=== PATIENT | male | born 1955 ===

== ENCOUNTER 2022-03-10 04:50 | Emergency (ER) | payer BC ==
--- OUTSIDE RECORDS SUMMARY | 2022-03-10 04:53 | XMS REPORT | Continuity of Care Document ---
:1955 Author Organization [facility] t Address [facility] [place] [address] Care Team Providers Name Role Phone Leana Ester Primary Care Physician Maribel RN, T Attending Clinician Unavailable Only, Db Test Attending Clinician Unavailable Lars CHURCHILL Attending Clinician LARS Attending Clinician Unavailable Doctor Unassigned, Name Attending Clinician Unavailable Pcp, Does Not Have A Attending Clinician Payers Payer Name Policy Type Policy Number Effective Date Expiration Date S ource Problems Condition Condition Condition Status Onset Resolution Last Treating Co mments Source Name Details Category Date Date Treatment Clinician Date Total knee Total knee Disease Active U nivers replacemen replacemen 1-04 it y of t status t status 00:00: [place] 00 [facility] Branch Right foot Right foot Disease Active 2014-11 U nivers pain pain 0-02 ity of 00:00: [place] 00 [facility] Left arm Left arm Disease Active 2014-11 Unive rs pain pain 0-02 ity of 00:00: [place] 00 [facility] Branch Right knee Right knee Disease Active 2014-11 U nivers pain pain 0-02 ity of 00:00: [place] 00 [facility] Allergies, Adverse Reactions, Alerts Allergy Allergy Status Severity Reaction(s) Onset Inactive Treating Comm ents Source Name Type Date Date Clinician Codeine Propensi Active Hives Univers ty to 5-10 ity of adverse 00:00: [place] reaction 00 Medical s Branch CODEINE DRUG Active Hives Univers INGREDI 5-10 ity of 00:00: [place] 00 [facility] Social History Social Habit Start Date Stop Date Quantity Comments Source Exposure to Not sure [facility] SARS-CoV-2 [place] [facility] (event) Branch Tobacco use and 2016-03-20 2016-03-20 Never used Universit y of exposure 00:00:00 00:00:00 [facility] Alcohol intake 2016-03-20 2016-03-20 Current University of 00:00:00 00:00:00 non-drinker of [facility] [place] [facility] alcohol Branch (finding) Sex Ass[birth year] At [birth year] Universit y of 00:00:00 00:00:00 [facility] Smoking Status Start Date Stop Date Source Never smoker [facility] Medications Ordered Filled Start Stop Current Ordering Indication Dosage Frequency Signature Comments Components Source Medication Medication Date Date Medication? Clinician (SIG) Name Name DICLOFENAC 2017 Yes TAKE 1 Unive rs 75 mg EC 0-10 TABLET BY ity of tablet 00:00: MOUTH 00 TWICE Medical DAILY WITH Branch MEALS DICLOFENAC 2016-11 Yes TAKE 1 Unive rs 75 mg EC 0-10 TABLET BY ity of tablet 00:00: MOUTH TWICE Medical DAILY WITH Branch MEALS DICLOFENAC 2016-11 Yes TAKE 1 Unive rs 75 mg EC 0-10 TABLET BY ity of tablet 00:00: MOUTH 00 TWICE Medical DAILY WITH Branch MEALS DICLOFENAC 2016-11 Yes TAKE 1 Unive rs 75 mg EC 0-10 TABLET BY ity of tablet 00:00: MOUTH 00 TWICE Medical DAILY WITH Branch MEALS DICLOFENAC 2016-11 Yes TAKE 1 Unive rs 75 mg EC 0-10 TABLET BY ity of tablet 00:00: MOUTH 00 TWICE Medical DAILY WITH Branch MEALS DICLOFENAC 2016-11 Yes TAKE 1 Unive rs 75 mg EC 0-10 TABLET BY ity of tablet 00:00: MOUTH 00 TWICE Medical DAILY WITH Branch MEALS pentazocine Yes TAKE 1 Univ ers -naloxone 4-06 TABLET BY ity o f (TALWIN NX) 00:00: MOUTH [place] 50-0.5 mg 00 EVERY 6 Medical tablet HOURS Branch NEEDED FOR PAIN. pentazocine Yes TAKE 1 Univ ers -naloxone 4-06 TABLET BY ity o f (TALWIN NX) 00:00: MOUTH [place] 50-0.5 mg 00 EVERY 6 Medical tablet HOURS Branch NEEDED FOR PAIN. pentazocine Yes TAKE 1 Univ ers -naloxone 4-06 TABLET BY ity o f (TALWIN NX) 00:00: MOUTH [place] 50-0.5 mg 00 EVERY 6 Medical tablet HOURS Branch NEEDED FOR PAIN. pentazocine 2016-0 Yes TAKE 1 Univ ers -naloxone 4-06 TABLET BY ity o f (TALWIN NX) 00:00: MOUTH [place] 50-0.5 mg 00 EVERY 6 Medical tablet HOURS Branch NEEDED FOR PAIN. pentazocine 2016-0 Yes TAKE 1 Univ ers -naloxone 4-06 TABLET BY ity o f (TALWIN NX) 00:00: MOUTH [place] 50-0.5 mg 00 EVERY 6 Medical tablet HOURS Branch NEEDED FOR PAIN. pentazocine 2016-0 Yes TAKE 1 Univ ers -naloxone 4-06 TABLET BY ity o f (TALWIN NX) 00:00: MOUTH [place] 50-0.5 mg 00 EVERY 6 Medical tablet HOURS Branch NEEDED FOR PAIN. traMADOL 2016-0 Yes 50mg Take 1 Tab Uni vers (ULTRAM) 50 3-11 by mouth ity of mg tablet 00:00: every 6 [place] 00 (six) Medical hours as Branch needed for Pain (scale 7-10) for up to 40 doses. traMADOL 2016-0 Yes 50mg Take 1 Tab Uni vers (ULTRAM) 50 3-11 by mouth ity of mg tablet 00:00: every 6 [place] 00 (six) Medical hours as Branch needed for Pain (scale 7-10) for up to 40 doses. traMADOL 2016-0 Yes 50mg Take 1 Tab Uni vers (ULTRAM) 50 3-11 by mouth ity of mg tablet 00:00: every 6 [place] 00 (six) Medical hours as Branch needed for Pain (scale 7-10) for up to 40 doses. traMADOL 2016-0 Yes 50mg Take 1 Tab Uni vers (ULTRAM) 50 3-11 by mouth ity of mg tablet 00:00: every 6 [place] 00 (six) Medical hours as Branch needed for Pain (scale 7-10) for up to 40 doses. traMADOL 2016-0 Yes 50mg Take 1 Tab Uni vers (ULTRAM) 50 3-11 by mouth ity of mg tablet 00:00: every 6 [place] 00 (six) Medical hours as Branch needed for Pain (scale 7-10) for up to 40 doses. traMADOL 2016-0 Yes 50mg Take 1 Tab Uni vers (ULTRAM) 50 3-11 by mouth ity of mg tablet 00:00: every 6 [place] 00 (six) Medical hours as Branch needed for Pain (scale 7-10) for up to 40 doses. ASPIRIN 2016-0 Yes 81mg Take 81 mg Univ ers ORAL 2-12 by mouth ity of 17:06: every [place] 38 other day. Medical Branch ASPIRIN 0 Yes 81mg Take 81 mg Univ ers ORAL 2-12 by mouth ity of 17:06: every [place] 38 other day. Medical Branch ASPIRIN 2015-0 Yes 81mg Take 81 mg Univ ers ORAL 2-12 by mouth ity of 17:06: every [place] 38 other day. Medical Branch ASPIRIN 0 Yes 81mg Take 81 mg Univ ers ORAL 2-12 by mouth ity of 17:06: every [place] 38 other day. Medical Branch ASPIRIN 0 Yes 81mg Take 81 mg Univ ers ORAL 2-12 by mouth ity of 17:06: every [place] 38 other day. Medical Branch ASPIRIN 0 Yes 81mg Take 81 mg Univ ers ORAL 2-12 by mouth ity of 17:06: every [place] 38 other day. Medical Branch ASCENSIA 2016-0 Yes Univers MICROFILL 1-04 ity of strip 00:00: [place] 00 Medical Branch ASCENSIA 2015-0 Yes Univers MICROFILL 1-04 ity of strip 00:00: [place] 00 Medical Branch ASCENSIA 2016-0 Yes Univers MICROFILL 1-04 ity of strip 00:00: [place] 00 Medical Branch ASCENSIA 2016-0 Yes Univers MICROFILL 1-04 ity of strip 00:00: [place] 00 Medical Branch ASCENSIA 2016-0 Yes Univers MICROFILL 1-04 ity of strip 00:00: [place] [facility] ASCENSIA 2016-0 Yes Univers MICROFILL 1-04 ity of strip 00:00: [place] 00 Medical Branch losartan 2014-0 Yes 50mg Take 50 mg Uni vers (COZAAR) 50 8-12 by mouth ity of mg tablet 00:00: daily. Medical Branch simvastatin 2014-0 Yes 20mg Take 20 mg Univers (ZOCOR) 20 8-12 by mouth ity o f mg tablet 00:00: at [place] 00 bedtime. Medical Branch losartan 2014-0 Yes 50mg Take 50 mg Uni vers (COZAAR) 50 8-12 by mouth ity of mg tablet 00:00: daily. Medical Branch simvastatin 2014-0 Yes 20mg Take 20 mg Univers (ZOCOR) 20 8-12 by mouth ity o f mg tablet 00:00: at [place] [address] bedtime. Medical Branch losartan 2014-0 Yes 50mg Take 50 mg Uni vers (COZAAR) 50 8-12 by mouth ity of mg tablet 00:00: daily. Medical Branch simvastatin 2014-0 Yes 20mg Take 20 mg Univers (ZOCOR) 20 8-12 by mouth ity o f mg tablet 00:00: at [place] [address] bedtime. Medical Branch losartan 2014-0 Yes 50mg Take 50 mg Uni vers (COZAAR) 50 8-12 by mouth ity of mg tablet 00:00: daily. Medical Branch simvastatin 2014-0 Yes 20mg Take 20 mg Univers (ZOCOR) 20 8-12 by mouth ity o f mg tablet 00:00: at [place] [address] bedtime. Medical Branch losartan 2014-0 Yes 50mg Take 50 mg Uni vers (COZAAR) 50 8-12 by mouth ity of mg tablet 00:00: daily. Medical Branch simvastatin 2014-0 Yes 20mg Take 20 mg Univers (ZOCOR) 20 8-12 by mouth ity o f mg tablet 00:00: at [place] [address] bedtime. Medical Branch losartan 2014-0 Yes 50mg Take 50 mg Uni vers (COZAAR) 50 8-12 by mouth ity of mg tablet 00:00: daily. Medical Branch simvastatin 2014-0 Yes 20mg Take 20 mg Univers (ZOCOR) 20 8-12 by mouth ity o f mg tablet 00:00: at [place] [address] bedtime. Medical Branch metFORMIN 2014-0 Yes 1000mg Take 1,000 Univers (GLUCOPHAGE 7-24 mg by ity of ) 1,000 mg 00:00: [place] (two[place] Medical times [place] daily. metFORMIN 2015-0 Yes 1000mg Take 1,000 Univers (GLUCOPHAGE 7-24 mg by ity of ) 1,000 mg 00:00: [place] (two) Medical times [place] daily. metFORMIN 2015-0 Yes 1000mg Take 1,000 Univers (GLUCOPHAGE 7-24 mg by ity of ) 1,000 mg 00:00: [place] tablet [place] (two) Medical times [place] daily. metFORMIN 2015-0 Yes 1000mg Take 1,000 Univers (GLUCOPHAGE 7-24 mg by ity of ) 1,000 mg 00:00: [place] tablet 00 (two) Medical times Branch daily. metFORMIN 2015-0 Yes 1000mg Take 1,000 Univers (GLUCOPHAGE 7-24 mg by ity of ) 1,000 mg 00:00: [place] tablet 00 (two) Medical times [place] daily. metFORMIN 2015-0 Yes 1000mg Take 1,000 Univers (GLUCOPHAGE 7-24 mg by ity of ) 1,000 mg 00:00: [place] tablet 00 (two) Medical times [place] daily. Procedures Procedure Date / Time Performed Performing Clinician [facility] e ASSIGNMENT OF BENEFITS 2021-07-05 21:06:51 Doctor Unassigned, No [facility] Encounters Start End Encounter Admission Attending Care Care Encounter Source Date/Time Date/Time Type Type Clinicians Facility Department ID 2021-07-08 2021-07-08 Outpatient [facility] [id number] Univers 12:00:00 [facility]:00[id number] 2021-07-07 2021-07-07 Letter FANNY López [id number] Univers 00:00:00 00:00:00 (Out) Shelbi JOHNSON [id number] it y of HOSPITAL [id number] Zeke as [phone] [address] 2021-07-05 2021-07-05 Laboratory Only, Ang Db Test [facility] 1.2.8 [id number] [id number] Univers 16:08:24 16:23:24 Only Ashley Capellan [facility] [id number] ity [facility] [id number] Zeke as Avelino?Blea [phone] [address] Medical Office Building 2021-07-05 2021-07-05 Outpatient R LARS [facility] [id number] Univers 16:00:00 16:00:00 ASHLEY [facility] 2021-07-05 2021-07-05 Orders Doctor ESCOBEDO [id number] Univers 00:00:00 00:00:00 Only UnassELIZABETH cespedes [id number] ity of [facility] [id number] Zeke as [id number] [facility] 009 Branch 2021-07-05 2021-07-05 Letter Pcp, [facility] [id number] Univers 00:00:00 00:00:00 (Out) Patient Health [id number] it y of Does Not [place] [id number] [place] Avelino?Blea [phone] Wy navarro blount [address] [place] [address] Medical Office Building 2021-07-03 2021-07-03 Outpatient R [facility] [id number] -[id number] Univers 16:00:00 16:00:00 [id number] ity [facility] Results This patient has no known results.
[2022-03-10 05:43] LABS: Absolute Lymphocytes (CBC) 1.6 K/uL (0.7-4.9); Hematocrit 49.2 % (39.6-49.0); Lymphocytes % 22.2 % (15.3-44.8); MPV 7.5 fL (7.6-11.3); RBC Red Blood Cell Count 5.21 M/uL (4.33-5.43)
[2022-03-10 05:47] LABS: Protime INR 0.93
[2022-03-10] MEDS ORDERED: ONDANSETRON 4 MG/2 ML VIAL ONE (05:50)
[2022-03-10] MEDS ORDERED: MORPHINE 4 MG/ML SYR ONE (05:50)
[2022-03-10 05:58] LABS: Albumin 3.8 g/dL (3.4-5.0); Bilirubin Direct 0.1 mg/dL (0-0.2); Bilirubin Total 0.4 mg/dL (0.2-1.0); Magnesium 2.3 mg/dL (1.8-2.4); Potassium 4.2 mmol/L (3.5-5.1); Protein, Total 6.7 g/dL (6.4-8.2)
--- NOTE | 2022-03-10 08:04 | RAD REPORT ---
EXAM DESCRIPTION: US - Extremity Venous Uni Ltd - 03/10/2022 7:59 am CLINICAL HISTORY: PAIN COMPARISON: None. TECHNIQUE: Real-time sonographic evaluation of the right lower extremity deep venous systems was per formed. FINDINGS: Normal compressibility, flow augmentation, phasic flow and spontaneous flow are identified in the right lower extremity common femoral, superficial femoral, popliteal and posterior tibial vei ns. No intraluminal filling defects seen. IMPRESSION: No DVT in the right lower extremity.
--- NOTE | 2022-03-10 08:10 | ER ---
Nurse's Notes [facility] Name: Butch Solano Age: 66 yrs Sex: Male : 1955 Arrival Date: 03/10/2022 Time: 04:51 Bed 20 Private MD: Diagnosis: Pain in right lower leg Presentation: 03/10 05:36 Chief complaint: Patient states: right lower leg pain. Coronavirus screen: Vaccine raymundo status: Patient reports receiving the 2nd dose of the covid vaccine. Ebola Screen: Patient negative for fever greater than or equal to 101.5 degrees Fahrenheit, and additional compatible Ebola Virus Disease symptoms Patient denies exposure to infectious person. Patient denies travel to an Ebola-affected area in the 21 days before illness onset. Initial Sepsis Screen: Does the patient meet any 2 criteria? No. Patient's initial sepsis screen is negative. Does the patient have a suspected source of infection? No. Patient's initial sepsis screen is negative. Risk Assessment: Do you want to hurt yourself or someone else? Patient reports no desire to harm self or others. Onset of symptoms was March 10, 2022 at 02:00. 05:36 Method Of Arrival: Wheelchair raymundo 05:36 Acuity: ALEJANDRO 3 raymundo 05:44 Care prior to arrival: The pt took Tylenol 650mg and Ibuprofen 600mg, prior to coming raymundo to the ER. Triage Assessment: 05:38 General: Appears in no apparent distress. uncomfortable. General: Behavior is calm, raymundo cooperative. Pain: Complains of pain in right leg. Historical: - Allergies: 05:41 Hydrocodone-Acetaminophen; raymundo - Home Meds: 06:02 Metformin Oral [Active]; Jardiance oral [Active]; losartan oral [Active]; atorvastatin ray[place] oral [Active]; - PMHx: 05:54 Diabetes mellitus; Hypertensive disorder; raymundo - Immunization history:: Client reports receiving the 2nd dose of the Covid vaccine. - Social history:: Smoking status: Patient reports the use of cigarette tobacco products, smokes one-half pack cigarettes per day, Patient uses alcohol, occasionally. Screenin:41 Abuse screen: Denies threats or abuse. Denies injuries from another. Nutritional raymundo screening:. Tuberculosis screening: No symptoms or risk factors identified. Fall Risk None identified. Assessment: 05:39 Reassessment: Patient appears in no apparent distress at this time. No changes from raymundo previously documented assessment. I recv'd the pt to room #20 \T\ 0530, via w/c, from Triage. The pt reports a sharp pain to his right lower leg, that awakened him, at 2am. Vital Signs: 05:36 BP 133 / 78; Pulse 61; Resp 16; Temp 97.5; Pulse Ox 96% on R/A; Pain 7/10; raymundo 05:40 BP 133 / 78; Pulse 61; Resp 16; Temp 97.5; Pulse Ox 96% on R/A; Pain 7/10; raymundo 05:54 Weight 95.25 kg; Height 5 ft. 8 in. (172.72 cm); raymundo 05:54 Body Mass Index 31.93 (95.25 kg, 172.72 cm) raymundo ED Course: 04:51 Patient arrived in ED. kz 05:12 Phil Zheng MD is Attending Physician. 7 05:35 Allyn Sarkar, RN is Primary Nurse. raymundo 05:38 Triage completed. raymundo 05:39 Arm band placed on. raymundo 05:41 No provider procedures requiring assistance completed. Inserted saline lock: 20 gauge raymundo in right antecubital area, using aseptic technique. 05:44 Tib Fib Right XRAY In Process Unspecified. EDMS 05:53 CPK Sent. raymundo 05:53 Magnesium Sent. raymundo 05:53 LFT's Sent. raymundo 05:53 Basic Metabolic Panel Sent. raymundo 05:55 Placed in gown. Bed in low position. Call light in reach. Side rails up X 1. Warm raymundo blanket given. 08:00 US Extremity Venous Unilateral Ltd In Process Unspecified. EDMS 08:29 IV discontinued, intact, Pressure dressing applied. brady Administered Medications: 05:52 Drug: Zofran (Ondansetron) 4 mg Route: IVP; Site: right antecubital; raymundo 06:33 Follow up: Response: No adverse reaction raymundo 05:53 Drug: morphine 4 mg Route: IVP; Site: right antecubital; raymundo 06:34 Follow up: Response: No adverse reaction raymundo Outcome: 05:55 Condition: stable raymundo 08:09 Discharge ordered by . kdr 08:28 Discharged to home with family. brady 08:28 Discharge instructions given to patient, Prescriptions given X 1. 08:29 Patient left the ED. brady Signatures: Dispatcher [employer] EDMS Jayjay Hedrick MD MD [facility] Phil Zheng MD MD [facility] Allyn Sarkar RN RN bo Au-Stager, Heather, RN RN ha Zapata, Kelly kz
--- NOTE | 2022-03-10 08:10 | EDPHYS ---
Physician Documentation [facility] Name: Butch Solano Age: 66 yrs Sex: Male : 1955 Arrival Date: 03/10/2022 Time: 04:51 Bed 20 Private MD: ED Physician Phil Zheng HPI: 03/10 05:28 This 66 yrs old Male presents to ER via Unassigned with complaints of Leg Pain - Right. mh7 05:28 The patient presents with pain, that is acute. The complaints affect the right lower mh7 leg. Context: The problem was sustained at home, resulted from an unknown cause, the patient can fully bear weight, the patient is able to ambulate, Problem is a result from a previous injury: No. Onset: The symptoms/episode began/occurred today, at 03:00. Modifying factors: The symptoms are alleviated by nothing. the symptoms are aggravated by nothing. Associated signs and symptoms: Pertinent negatives fever, nausea, numbness, rash, swelling, tingling, vomiting, warmth, weakness. Treatment prior to arrival includes: over the counter medications, NSAIDS, Tylenol. Severity of symptoms: At their worst the symptoms were moderate, earlier today, in the emergency department the symptoms have improved, moderately. Historical: - Allergies: 05:41 Hydrocodone-Acetaminophen; raymundo - Home Meds: 06:02 Metformin Oral [Active]; Jardiance oral [Active]; losartan oral [Active]; atorvastatin [place] oral [Active]; - PMHx: 05:54 Diabetes mellitus; Hypertensive disorder; raymundo - Immunization history:: Client reports receiving the 2nd dose of the Covid vaccine. - Social history:: Smoking status: Patient reports the use of cigarette tobacco products, smokes one-half pack cigarettes per day, Patient uses alcohol, occasionally. ROS: 05:28 Constitutional: Negative for fever, chills, and weight loss, Eyes: Negative for injury, mh7 pain, redness, and discharge, ENT: Negative for injury, pain, and discharge, Neck: Negative for injury, pain, and swelling, Cardiovascular: Negative for chest pain, palpitations, and edema, Respiratory: Negative for shortness of breath, cough, wheezing, and pleuritic chest pain, Abdomen/GI: Negative for abdominal pain, nausea, vomiting, diarrhea, and constipation, Back: Negative for injury and pain, : Negative for injury, bleeding, discharge, and swelling, Skin: Negative for injury, rash, and discoloration, Neuro: Negative for headache, weakness, numbness, tingling, and seizure, Psych: Negative for depression, anxiety, suicide ideation, homicidal ideation, and hallucinations, Allergy/Immunology: Negative for hives, rash, and allergies, Endocrine: Negative for neck swelling, polydipsia, polyuria, polyphagia, and marked weight changes, Hematologic/Lymphatic: Negative for swollen nodes, abnormal bleeding, and unusual bruising. Exam: 05:28 Constitutional: This is a well developed, well nourished patient who is awake, alert, mh7 and in no acute distress. Head/Face: Normocephalic, atraumatic. Eyes: Pupils equal round and reactive to light, extra-ocular motions intact. Lids and lashes normal. Conjunctiva and sclera are non-icteric and not injected. Cornea within normal limits. Periorbital areas with no swelling, redness, or edema. Neck: Trachea midline, no thyromegaly or masses palpated, and no cervical lymphadenopathy. Supple, full range of motion without nuchal rigidity, or vertebral point tenderness. No Meningismus. Chest/axilla: Normal chest wall appearance and motion. Nontender with no deformity. No lesions are appreciated. Cardiovascular: Regular rate and rhythm with a normal S1 and S2. No gallops, murmurs, or rubs. Normal PMI, no JVD. No pulse deficits. Respiratory: Lungs have equal breath sounds bilaterally, clear to auscultation and percussion. No rales, rhonchi or wheezes noted. No increased work of breathing, no retractions or nasal flaring. Abdomen/GI: Soft, non-tender, with normal bowel sounds. No distension or tympany. No guarding or rebound. No evidence of tenderness throughout. Back: No spinal tenderness. No costovertebral tenderness. Full range of motion. Skin: Warm, dry with normal turgor. Normal color with no rashes, no lesions, and no evidence of cellulitis. Neuro: Awake and alert, GCS 15, oriented to person, place, time, and situation. Cranial nerves II-XII grossly intact. Motor strength 5/5 in all extremities. Sensory grossly intact. Cerebellar exam normal. Normal gait. Psych: Awake, alert, with orientation to person, place and time. Behavior, mood, and affect are within normal limits. 05:28 Musculoskeletal/extremity: Extremities: noted in the right lower leg: tenderness, ROM: intact in all extremities, Circulation is intact in all extremities. Sensation intact. Compartment Syndrome exam of affected extremity: is normal. no numbness, no tingling, no sensation deficit, no palor, no weak pulses, Joints: All joints appear normal with full range of motion. Weight bearing: able to fully bear weight, without difficulty, Tendon exam: specific tendon testing normal through active and passive range of motion DVT Exam: negative Homans' sign noted on exam, no appreciated bluish discoloration, no erythema, no increased warmth, pain, that is moderate, of the right leg, tenderness, that is moderate, of the right leg. Vital Signs: 05:36 BP 133 / 78; Pulse 61; Resp 16; Temp 97.5; Pulse Ox 96% on R/A; Pain 7/10; raymundo 05:40 BP 133 / 78; Pulse 61; Resp 16; Temp 97.5; Pulse Ox 96% on R/A; Pain 7/10; raymundo 05:54 Weight 95.25 kg; Height 5 ft. 8 in. (172.72 cm); raymundo 05:54 Body Mass Index 31.93 (95.25 kg, 172.72 cm) raymundo MDM: 08:09 Patient medically screened. kdr 03/10 05:27 Order name: CBC with Diff; Complete Time: 06:05 7 03/10 05:27 Order name: Basic Metabolic Panel; Complete Time: 06:05 7 03/10 05:27 Order name: Protime (+inr); Complete Time: 06:05 7 03/10 05:27 Order name: Ptt, Activated; Complete Time: 06:05 7 03/10 05:27 Order name: LFT's; Complete Time: 06:05 7 03/10 05:27 Order name: CPK; Complete Time: 06:05 7 03/10 05:26 Order name: Tib Fib Right XRAY; Complete Time: 22:29 7 03/10 05:26 Order name: US Extremity Venous Unilateral Ltd; Complete Time: 08:09 7 03/10 05:27 Order name: Magnesium; Complete Time: 06:05 7 03/10 05:27 Order name: Saline Lock; Complete Time: 05:53 7 Administered Medications: 05:52 Drug: Zofran (Ondansetron) 4 mg Route: IVP; Site: right antecubital; raymundo 06:33 Follow up: Response: No adverse reaction raymundo 05:53 Drug: morphine 4 mg Route: IVP; Site: right antecubital; raymundo 06:34 Follow up: Response: No adverse reaction raymundo Disposition Summary: 03/10/22 08:09 Discharge Ordered Location: Home kdr Problem: new kdr Symptoms: have improved kdr Condition: Stable kdr Diagnosis - Pain in right lower leg kdr Followup: [facility] - With: Private Physician - When: 1 - 2 days - Reason: Worsening of condition, Recheck today's complaints, Continuance of care, Re-evaluation by your physician Discharge Instructions: - Discharge Summary Sheet [facility] - Musculoskeletal Pain [facility] Forms: - Medication Reconciliation Form kdr - Thank You Letter kdr - Antibiotic Education kdr - Prescription Opioid Use kdr Prescriptions: - Ibuprofen 600 mg Oral Tablet - take 1 tablet by ORAL route every 8 hours As needed take with food; 12 tablet; [facility] Refills: 0, Product Selection Permitted Signatures: Dispatcher [employer] EDJayjay Natarajan MD MD kdr Phil Zheng MD MD 7 Allyn Sarkar, RN RN raymundo
[2022-03-10 08:35] VITALS: BP 133/78; TEMP 97.5; O2SAT 96
--- NOTE | 2022-03-10 20:29 | RAD REPORT ---
EXAM DESCRIPTION: RAD - Tib Fib Right - 03/10/2022 5:43 am CLINICAL HISTORY: PAIN COMPARISON: None. TECHNIQUE: XR TIBIA FIBULA 03/10/2022 5:26 AM CDT FINDINGS: There is no fracture. Total right knee arthroplasty was performed. Soft tissues are unrema rkable. IMPRESSION: No acute osseous findings. Electronically signed by: Manav Alanis MD 03/10/2022 6:25 AM CDT Due to temporary technical issues with the PACS/Fluency reporting system, reports are being signed by the in house radiologists without review as a courtesy to insure prompt reporting. The interpreting radiologist is fully responsible for the content of the report.
== END 2022-03-10 08:29 | disposition home or self-care (01) ==
LOC: ER 04:50
DX: M79.661 Pain in right lower leg (principal); E11.9 Type 2 diabetes mellitus without complications; I10 Essential (primary) hypertension; F17.210 Nicotine dependence, cigarettes, uncomplicated; Z88.5 Allergy status to narcotic agent
CPT/HCPCS: 85025; 80048; 36415; 83735; 82550; 85610; 80076; 85730; 73590; 93971; 96375; 96374; 99284; J2405